=== PATIENT | female | born 1995 | race Two or more races ===

== ENCOUNTER 2024-12-04 06:30 | Inpatient (IN) | payer MEDICAID, SELFPAY ==
[2024-12-04] VITALS (91 sets, daily range): BP systolic 97–225; BP diastolic 51–122; PULSE 73–125; RESP 16–19; TEMP 36.7–36.9; O2SAT 80–100; BMI 40.2; BMI 42.8
[2024-12-04] MEDS: RINGERS LACTATED 1000 ML 1,000 ML 100 ML IV ×2 (07:30→09:30)
[2024-12-04] MEDS: Ampicillin Inj 2,000 MG in SODIUM CHLORIDE 0.9% (POP) 100 ML 200 MG IV (07:37)
--- NOTE | 2024-12-04 08:03 | ESHP_ITS ---
Documentation for date of: 12/04/24 OB Labor/Induct. HPI History of Present Illness : 5 Para: 2 History of Abortions: Spontaneous and Elective: 2 History of Vaginal deliveries: 2 History of sections: No History of : No KYLER: 12/02/24 Gestational Age (weeks): 40 Gestational Age (days): 2 History of present illness: H and P dictated on STAT Line in [facility] #9. [id number]. Past Medical History Surgical History SURGICAL: Negative Section Meds Home Medications and Allergies Allergies Allergy/AdvReac Type Severity Reaction Status Date / Time NKA* Allergy Mild NONE Uncoded 04/22/22 13:15 OB Exam Physical Exam Vital signs: Pulse BP 73 129/83 12/04/24 07:42 12/04/24 07:42
[2024-12-04 08:12] LABS: Basophils # (Auto) 0.0 Thou/mm3 (0.0-0.2); Basophils % (Auto) 0 % (0-2.5); Eosinophils # (Auto) 0.1 Thou/mm3 (0.0-0.5); Eosinophils % (Auto) 1 % (0-10); Hematocrit 38.1 % (36.0-46.0); Hemoglobin 13.1 g/dL (12.0-16.0); Immature Granulocytes Auto 0.04 Thou/mm3 (0.00-0.00); Lymphocytes # (Auto) 1.7 Thou/mm3 (1.0-4.8); Lymphocytes % (Auto) 18 % (10-50); Mean Corpuscular HGB Conc 34.4 g/dl (31.0-37.0); Mean Corpuscular Hemoglobin 31.1 pg (25.0-35.0); Mean Corpuscular Volume 91 fL (80-100); Monocytes # (Auto) 0.7 Thou/mm3 (0.0-0.8); Monocytes % (Auto) 8 % (0-12); Neutrophils # (Auto) 6.7 Thou/mm3 (1.8-7.7); Neutrophils % (Auto) 73 % (37-80); Nucleated Red Blood Cell # 0.00 Thou/mm3 (0.00-0.00); Nucleated Red Blood Cell % 0 /100 WBC (0); Platelet Count 161 Thou/mm3 (140-440); RDW Standard Deviation 41.7 fL (36.4-46.3); Red Blood Count 4.21 Miln/mm3 (4.00-5.20); White Blood Count 9.3 Thou/mm3 (3.6-11.0)
--- NOTE | 2024-12-04 08:53 | ESHP_ITS ---
RE: SKYLA ESCAMILLA : 1995 DATE OF ADMISSION: 12/04/2024 HISTORY OF PRESENT ILLNESS: This is a 29-year-old 5, para 2-0-2-2 with due date of 12/02 with intrauterine of 40 weeks and 2 days. She presents to labor and delivery complaining of persistent painful contractions and is noted to be 5 cm. She denies any leaking or bleeding. She reports normal movement. She had an abnormal 1-hour glucose tolerance test, but her 3-hour glucose tolerance test was within normal limits. Her Group B strep vaginal rectal colonization swab was positive. She does have gestational thrombocytopenia with a recent platelet count of 133,000. ALLERGIES: NO KNOWN DRUG ALLERGIES. MEDICATIONS: multivitamin 1 p.o. daily. SOCIAL HISTORY: She is . She denies any alcohol, drug use, or smoking. PAST MEDICAL HISTORY: Gestational Thrombocytopenia. PAST SURGICAL HISTORY: D and C 2016 for Spon AB at 6 weeks. OB HISTORY: x 2. Spon Ab at 6 wks x 2. REVIEW OF SYSTEMS: She denies any headache, change in vision, or right upper quadrant pain. She denies any chest pain, palpitations, shortness of breath, or lower extremity pain. PHYSICAL EXAMINATION: VITAL SIGNS: Blood pressure 129/83, heart rate 73, respirations 18, temperature 98.2. HEENT: Oropharynx and sclera are clear. LUNGS: Clear to auscultation bilaterally. HEART: Regular rate and rhythm. ABDOMEN: Gravid. Term size consistent with estimated weight, 7.5 pounds. PELVIC: See RN notes. EXTREMITIES: Nontender. SKIN: No gross rashes or lesions. NEUROLOGIC: No focal deficits. ASSESSMENT AND PLAN: Intrauterine at 40 weeks and 2 days, active labor, anticipated spontaneous vaginal delivery, group B strep vaginal rectal colonization positive. PLAN: Ampicillin for group B strep prophylaxis. Informed consent was obtained. The patient made aware of the risks, complications, alternatives, and benefits of operative vaginal delivery and delivery and agrees with these modes of delivery if indicated. DT: 08:03:03 TT: 08:52:00 Ref: [id number] - TID: [id number] [facility]
[2024-12-04 08:59] LABS: Syphilis Nonreactive (Nonreactive)
[2024-12-04] MEDS: Ampicillin Inj 1,000 MG in SODIUM CHLORIDE 0.9% (Popper) 50 ML 50 MG IV (10:58)
--- NOTE | 2024-12-04 12:09 | PD.LDPN ---
Documentation for date of: 12/04/24 OB Labor Progress Note Pelvic Exam Dilation (cm): 10 Effacement (%): 100 station: 0 Amniotic membrane status: Ruptured Comments: Scalp electrode applied. Patient has already ruptured. Contractions Monitor mode: External Contraction frequency: 3-4 Contraction intensity: Moderate Status status: Category ll Comments: Acceleration with tactile stimulation of scalp Assessment and Plan Comments: 2nd Stage Labor Encourage Pushing Anticipate .
[2024-12-04] MEDS: OXYTOCIN in NS 20 units 20 UNIT/1,000 ML BAG 125 UNIT IV (12:29)
--- NOTE | 2024-12-04 12:49 | ESDS_ITS ---
DS: Providers Provider Date of admission: 12/04/24 06:30 Primary care physician: Physician No Primary/Family Admitting Provider: Yariel Ann MD Attending Provider on Admission: Yariel Ann MD Attending Provider on DC: Yariel Ann MD Discharging Provider: Yariel Ann MD DS: Diagnosis Problem List Completed Was Problem List Reviewed/Reconciled?: Yes Summary/Hosp Course Brief History: H and P dictated on STAT Line in [facility] #9. [id number]. Peripartum Data Delivery Method: Normal Vaginal Delivery Episiotomy Description: None Time Spent with Patient Time attestation: Total time spent providing and/or coordinating discharge services: Exam Vital Signs Temp Pulse Resp BP Pulse Ox 98.1 F 90 19 118/60 97 12/04/24 08:47 12/04/24 12:40 12/04/24 08:47 12/04/24 12:40 12/04/24 12:45 Discharge Plan Plan Patient Disposition: HOME (Self Care) Patient condition on transfer: Stable Prescriptions/Referrals Prescriptions/Med Rec: New ibuprofen 600 mg tablet 600 mg PO Q6H PRN (Reason: pain) Qty: 30 0RF Discontinued ibuprofen 600 MG tablet 1 tab PO Q8HR PRN (Reason: FEVER > 101) Qty: 30 0RF Sulfamethoxazole/Trimethoprim DS * (BACTRIM DS *) 1 TAB tablet 1 tab PO BID Qty: 20 0RF Referrals: No Primary/Family,Physician [Primary Care Provider] Patient/Caregiver Discharge Instructions Discharge Activity: activity as tolerated Other Discharge Activity Instructions:: Follow up office 6 weeks Education Materials: After a Vaginal , After Delivery Concerns, Breast Care After Print Language: Korean Stand Alone Forms: Ami Award Info., Patient Portal Info Letter, Work/Release Restrictions Discharge Order Discharge Orders: Discharge (Routine); Ordered 12/05/24 Ordered By: Yariel Ann Planned Discharge Date 12/05/24
[2024-12-04] MEDS: IBUPROFEN TAB 400 MG TABLET 800 MG PO (14:29)
--- NOTE | 2024-12-04 17:36 | PD.LDDELS ---
Vacuum Assisted Delivery General Patient Counseled by physician:: Yes Informed consent to patient:: Yes Estimated weight:: 7 lb 8 oz Cervical dilation:: fully dilated station:: +3 position:: OA Molding:: No Caput:: No Vacuum Application Vacuum type:: Mityvac Vacuum application:: flexing median Total vacuum time (min):: 1 Maximum pressure (cm Hg):: 50 Cup Placement Flexion point identified:: Yes Cup approp. for head position:: Yes Maternal tissue excluded:: Yes Vacuum Procedure Number of pulls (contractions):: 1 Number of pop-offs:: 0 Recommended range maintained:: Yes Vacuum reduced between pulls:: Yes Advancement made each pull:: Yes Vacuum successful:: Yes Immediate Evaluation Immediate assessment:: no apparent injury Hand-off care to:: nursery nurse Additional Comments Additional comments: Poor maternal expulsive effort with recent severe and prolonged variable decels and some late decelerations was the indication for the OVD. Data (Zelaya) Data Hx Section: No : 5 Abortions: Spontaneous & Theraputic: 2 Delivery Data (Zelaya) Labor Data Initiation of labor: Spontaneous Induction/Augmentation Agent: None ROM date: 12/04/24 ROM time: 12:00 Amniotic membrane rupture type: Spontaneous Amniotic fluid description: Blood Tinged Delivery Data EDC: 12/02/24 EDC calculated by:: LMP/early US confirmation Onset of labor date: 12/04/24 Onset of labor time: 02:30 Complete dilation date: 12/04/24 Complete dilation time: 12:00 [place] delivery date: 12/04/24 [place] delivery time: 12:29 Gestational age (weeks): 40 Gestational age (days): 2 Placenta delivery date: 12/04/24 Placenta delivery time: 12:34 Stage 1 total time: Labor - Stage 1 Duration 9 hours and 30 minutes Delivered by: Yariel Ann Delivery nurse: [email or web address] Bills nurse: [email or web address] Automation Tester at delivery: No Support person(s) at delivery: FOB Delivery Method Delivery method: Normal Vaginal Delivery Presentation: Vertex position: OA Anesthesia Type Anesthesia Type: Epidural Placenta Placenta delivery description: Spontaneous Cord blood sent to lab: Yes cord blood collection: Cord Blood Type Episiotomy Episiotomy description: None EBL Estimated blood loss (ml): 100 Umbilical Cord cord description: 3 Vessels, Nuchal Cord and Tight Additional Procedures Tight non reduceable nuchal cord doubly clamped and cut prior to shoulder delivery Complications Complications: None [place] Data (Zelaya) [place] Data order: 1 's gender: Male Identification band number: [id number] weight (gms): 7 lb 6.873 oz Weight (pounds): 7 lbs and 6.9 ozs length: 21.46 in 1 minute: 8 5 minutes: 9
[2024-12-04 17:58] LABS: Amphetamine/Metham Scrn,Ur OB Negative (Negative); Benzoylecgonine Screen, Ur OB Negative (Negative); Opiate Screen,Urine OB Negative (Negative); THC Screen,Urine OB Negative (Negative)
[2024-12-04 18:19] LABS: Basophils # (Auto) 0.0 Thou/mm3 (0.0-0.2); Basophils % (Auto) 0 % (0-2.5); Eosinophils # (Auto) 0.0 Thou/mm3 (0.0-0.5); Eosinophils % (Auto) 0 % (0-10); Hematocrit 33.1 % (36.0-46.0); Hemoglobin 11.5 g/dL (12.0-16.0); Immature Granulocytes Auto 0.04 Thou/mm3 (0.00-0.00); Lymphocytes # (Auto) 1.5 Thou/mm3 (1.0-4.8); Lymphocytes % (Auto) 11 % (10-50); Mean Corpuscular HGB Conc 34.7 g/dl (31.0-37.0); Mean Corpuscular Hemoglobin 32.1 pg (25.0-35.0); Mean Corpuscular Volume 93 fL (80-100); Monocytes # (Auto) 0.7 Thou/mm3 (0.0-0.8); Monocytes % (Auto) 5 % (0-12); Neutrophils # (Auto) 12.0 Thou/mm3 (1.8-7.7); Neutrophils % (Auto) 84 % (37-80); Nucleated Red Blood Cell # 0.00 Thou/mm3 (0.00-0.00); Nucleated Red Blood Cell % 0 /100 WBC (0); Platelet Count 135 Thou/mm3 (140-440); RDW Standard Deviation 43.0 fL (36.4-46.3); Red Blood Count 3.58 Miln/mm3 (4.00-5.20); White Blood Count 14.3 Thou/mm3 (3.6-11.0)
[2024-12-05] VITALS: BP 116/73; PULSE 94; RESP 18; TEMP 36.6; O2SAT 98
[2024-12-05 03:47] VITALS: BP 98/62; PULSE 80; RESP 18; TEMP 36.7; O2SAT 98
[2024-12-05 07:50] VITALS: BP 118/69; PULSE 98; RESP 18; TEMP 36.4; O2SAT 95
--- NOTE | 2024-12-05 10:43 | PC.SS ---
This TRANSPORTATION SUPERVISOR international operations manager completed a face to face assessment with patient at bedside. During assessment baby is seen in patient arms being held seen bonding appropriately, father of baby was present in room Gunnar Thomas. This TRANSPORTATION SUPERVISOR international operations manager introduced self and explained reason for bedside assessment due to late to care. Patient is alert and oriented, she appears to be in good spirits and was able to participate. Patient confirmed home address [address] [place] [address] and telephone number [phone]. Patient was able to confirm home address and telephone number. Patient said father of the baby Gunnar Thomas will be transporting her and baby home. patient states she has car seat and all baby supplies ready. She states she does not have a judo teacher but will be going to [facility] for pediatric appointment. Patient reports she was late to care due to her waiting on appointment with preferred OB Dr. Nelson in [place], after weeks of waiting for a call back she scheduled appointment with Dr. Ann. Patient states she has 2 other kids at home ages 5 and 7 denies having any CPS cases. She does not receive any [place] aid or food stamps, she does receive WIC. No history of drugs or alcohol or domestic violence in the home. Baby did have hearing test done no results as of now, no lights on baby or any concerns at . This was vaginal at 40 weeks 8/9 labor date 12/04/24 @1229. Patient states she is unemployed and will breast feed and bottle feed. No questions or concerns from patient.
[2024-12-05 11:28] VITALS: BP 127/78; PULSE 94; RESP 18; TEMP 36.8; O2SAT 97
--- NOTE | 2024-12-05 11:50 | ESPR_ITS ---
RE: SKYLA ESCAMILLA : 1995 DATE OF SERVICE: 12/05/2024 S: day #1, the patient denies any problem or complaints. She is voiding. She is ambulating. She is tolerating regular diet. She is passing flatus. She denies any excessive vaginal bleeding. She denies any dizziness or lightheadedness. She denies any chest pain, palpitations, shortness of breath, or lower extremity pain. O: Vital Signs: Blood pressure 118/69, heart rate 98, respirations 18, temperature 97.5, pulse oximetry is 95% on room air. Lungs: Clear to auscultation bilaterally. Heart: Regular rate and rhythm. Abdomen: Fundus is firm, nontender. Extremities: Nontender. Laboratory Data: Hemoglobin pre-delivery 13.1, post-delivery is 11.5. A: day #1, status post vacuum-assisted vaginal delivery. P: Discharge home when baby is cleared. Discharge instructions given. Follow up in the office in 6 weeks. DT: 11:00:26 TT: 11:48:00 Ref: [id number] - TID: [id number]
== END 2024-12-05 13:13 | disposition home or self-care (01) | DRG 560 ==
LOC: S4SX 14:24 → S4NX 15:36
PROVIDERS: Admitting Provider Specialist; Visit Provider Specialist
DX: O48.0 Post-term pregnancy (principal); O99.824 Streptococcus B carrier state complicating childbirth; O99.12 Other diseases of the blood and blood-forming organs and certain disorders involving the immune mechanism complicating childbirth; D69.59 Other secondary thrombocytopenia; Z3A.40 40 weeks gestation of pregnancy; Z37.0 Single live birth; O69.1XX0 Labor and delivery complicated by cord around neck, with compression, not applicable or unspecified; O76 Abnormality in fetal heart rate and rhythm complicating labor and delivery
CPT/HCPCS: 36415; 59409; 80307; 85025; 86780; 86850; 86900; 86901; J0290; J2590; J2795; J3010; J7050; J7120; A9270